=== PATIENT | female | born 2000 | race Caucasian/White ===

== ENCOUNTER 2021-11-11 17:14 | Emergency (ER) | payer OTHER ==
[~2021-11-11 17:14] MED LIST: GASTROGRAFIN 30 ML BOT ONE; Iopamidol-370 76% 500 ML 1 ML ONE
[2021-11-11 18:23] LABS: #Eosinphils 0.1 thou/uL (0.0-0.7); #Lymphocytes 1.7 thou/uL (1.20-3.40); #Neutrophils 11.2 thou/uL (1.40-6.50); %Basophils 0.3 % (0.0-1.0); %Eosinophils 0.6 % (0.0-10.0); %Lymphocytes 12.1 % (21.0-51.0); %Monocytes 7.1 % (0.0-10.0); %Neutrophils 79.9 % (42.0-75.0); Hemoglobin 14.6 g/dL (12.0-16.0); Mean Corpuscular HGB CONC 34.3 g/dL (32.0-36.0); Mean Corpuscular Hemoglobin 28.9 pg (27.0-31.0); Mean Corpuscular Volume 84.2 fL (78.0-98.0); Mean Platelet Volume 7.3 fL (7.4-10.4); Platelet Count 338 thou/uL (130-400); RBC Distribution Width 12.4 % (11.5-14.5); Red Blood Cell (RBC) Count 5.06 mill/uL (4.20-5.40); White Blood Cell (WBC) Count 14.1 thou/uL (4.8-10.8)
[2021-11-11 18:42] LABS: ALT (SGPT) 47 U/L (8-55); AST (SGOT) 70 U/L (5-34); Albumin 4.7 g/dL (3.5-5.0); Alkaline Phosphatase 70 U/L (40-110); Anion Gap 17 mmol/L (10-20); BUN (Urea Nitrogen) 9 mg/dL (7.0-18.7); Bilirubin, Total 0.7 mg/dL (0.2-1.2); Calc. Creatinine Clearance 0 mL/min (70-130); Calcium 9.8 mg/dL (7.8-10.44); Carbon Dioxide 22 mmol/L (22-29); Chloride 103 mmol/L (98-107); Estimated GFR 120; Globulin 3.3 g/dL (2.4-3.5); Glucose 82 mg/dL (70-105); Lipase 18 U/L (8-78); Sodium 138 mmol/L (136-145)
[2021-11-11] MEDS ORDERED: Morphine 4 MG/ML VIAL ONE (18:44)
[2021-11-11] MEDS ORDERED: Ondansetron PF 4 MG/2 ML Vial ONE ×2 (18:44→20:53)
[2021-11-11 19:16] LABS: Bilirubin Negative (Negative); Blood, Urine Negative (Negative); Clarity Clear (Clear); Glucose, Urine (Dipstick) Normal (Negative); Ketone, Urine 20 mg/dL (Negative); Leukocyte Negative Leu/uL (Negative); Nitrite Negative (Negative); Protein, Urine (Dipstick) 10 mg/dL (Neg-Trace); Specific Gravity, Urine 1.036 (1.002-1.036); pH, Urine 5.5 (5.0-9.0)
[2021-11-11 19:18] LABS: Pregnancy Test - Urine (BHCG) Negative (Negative); Pregu Control Background? CLEAR/WHITE (CLR/WHITE); Pregu Control Bar Appear? YES (CONTROL BAR); Specific Gravity 1.036 (1.002-1.036)
[2021-11-11] MEDS ORDERED: Ketorolac Tromethamine 30 MG/ML VIAL ONE (20:53)
== END 2021-11-11 22:45 | disposition home or self-care (01) ==
LOC: ERS 17:14
DX: K80.20 Calculus of gallbladder without cholecystitis without obstruction (principal)
CPT/HCPCS: 36415; 74177; 76705; 80053; 81003; 81025; 83690; 85025; 96374; 96375; 96376; J1885; J2270; J2405; Q9963; Q9967